=== PATIENT | female | born 2000 | race African-American/Black ===

== ENCOUNTER 2025-07-04 11:19 | Emergency (ER) | payer BC ==
[~2025-07-04] VITALS: Ht 165.1 cm; Wt 75.0 kg
[2025-07-04 11:27] VITALS: TEMP 36.9; O2SAT 100
[2025-07-04] MEDS: KETOROLAC 30MG/ML VIAL IM ONE (12:30)
[2025-07-04 12:33] LABS: HEMATOCRIT. 39.7 % (36.0-48.0); HEMOGLOBIN. 13.6 g/dL (12.0-16.0); MEAN PLATELET VOLUME 8.8 fl (7.4-10.4); PLATELET 213 x1000/uL (130-400); RED BLOOD CELL COUNT 4.45 mill/uL (4.2-5.4); RED CELL DISTRIBUTION WIDTH 13.9 % (11.6-14.6)
[2025-07-04 12:48] LABS: CREATININE 0.8 mg/dL (0.6-1.0); UREA NITROGEN BLOOD < 5 mg/dL (9-23)
[2025-07-04 12:50] LABS: ASPARTATE AMINOTRANSFERASE 14 IU/L (<34); BILIRUBIN DIRECT 0.3 mg/dL (<=3.0); BILIRUBIN TOTAL 1.0 mg/dL (0.1-1.0)
[2025-07-04 12:51] LABS: PROTEIN TOTAL 7.2 g/dL (6.0-8.3)
[2025-07-04 13:12] LABS: BAND% 2.0 % (1.0-6.0); LYMPHOCYTES % MANUAL 5.0 % (20.0-60.0); MONOCYTES % MANUAL 5.0 % (2.0-8.0); NEUTROPHILS % MANUAL 88.0 % (45.0-75.0); PLATELET ESTIMATE NORMAL
[2025-07-04] MEDS ORDERED: DOXY100T2 MT (14:54)
[2025-07-04 15:03] LABS: CLARITY URINE CLEAR (CLEAR); COLOR URINE YELLOW (YELLOW); GLUCOSE URINE NEGATIVE (NEGATIVE); KETONES URINE 3+ (NEGATIVE); LEUKOCYTE ESTERASE URINE 1+ (NEGATIVE); NITRITE URINE NEGATIVE (NEGATIVE); OCCULT BLOOD URINE TRACE (NEGATIVE); PH URINE 6.0 (4.5-8.0); PROTEIN URINE NEGATIVE (NEGATIVE); SPECIFIC GRAVITY URINE 1.020 (1.005-1.030); UROBILINOGEN URINE 1.0 E.U./dL (0.2-1.0)
[2025-07-04 15:13] LABS: BACTERIA URINE 2+; RBC URINE 0-2 /hpf (0-2); SQUAMOUS EPITHELIAL CELL URINE 2+ /lpf (RARE/1+); WBC URINE 15-25 /hpf (0-2); YEAST URINE NONE SEEN
[2025-07-04] MEDS: CEFTRIAXONE SODIUM 500MG VIAL IM ONE (15:27)
[2025-07-04] MEDS: LIDOCAINE HCL 1% 20ML VIAL INFIL ONE (15:27)
[2025-07-04 15:30] VITALS: BP 118/70; PULSE 60; RESP 16; O2SAT 100
[2025-07-04] MEDS ORDERED: NITR100C MT (16:17)
[2025-07-04] MEDS ORDERED: IBUP-2437 MT (16:20)
[2025-07-07 13:08] LABS: CHLAMYDIA TRACHOMATIS NAA Positive (Negative); NEISSERIA GONORRHOEAE NAA Negative (Negative)
== END 2025-07-04 15:36 | disposition home or self-care (01) ==
LOC: ER 11:19
DX: N94.89 Other specified conditions associated with female genital organs and menstrual cycle (principal); Z11.3 Encounter for screening for infections with a predominantly sexual mode of transmission; Z79.899 Other long term (current) drug therapy
CPT/HCPCS: 99285; 76830; 76856; 87491; 87591; 80076; 80048; 81003; 87106; 83690; 85025; 87086; 87186; 36415; 96372; J1885; J0696; J2003